=== PATIENT | female | born 1965 | race Caucasian/White ===

== ENCOUNTER 2022-09-21 12:03 | Emergency (ER) | payer MEDICAID, SELFPAY ==
[2022-09-21 12:04] VITALS: BP 148/73; PULSE 68; RESP 15; TEMP 36; O2SAT 98; BMI 21.1
--- NOTE | 2022-09-21 12:19 | VDLE_ITS ---
Reason For Study: Swelling RLE RIGHT LEFT GSV is normal. CFV is compressible, spontaneous, phasic, CFV is compressible, spontaneous, phasic, competent, and demonstrates normal competent and demonstrates normal augmentation. augmentation. FV is compressible, spontaneous, phasic, competent and demonstrates normal augmentation. POP V is compressible, spontaneous, phasic, competent and demonstrates normal augmentation. T/P Trunk is compressible. PTV is compressible. RT PerV is compressible. Procedure This is a venous duplex using B-mode, color flow and spectral Doppler. Exam performed portable in ED. A preliminary report was called and/or faxed to Dr. Irizarry. VL/Venous Duplex US, Unilateral Interpretation Summary Deep veins of the right lower extremity are patent and compressible segmentally . There is no evidence of right lower extremity deep vein thrombosis. The right great sapheno us vein appears patent and compressible segmentally. Ordering Physician: Shaye Irizarry Referring Physician: [facility] Performed By: Argelia Valle, KARRIE, RVT
--- NOTE | 2022-09-21 12:19 | EX.ED.DYSGE1 ---
HPI History of Present Illness Chief Complaint: Lower Extremity Injury Detail of Chief Complaint: Right foot swelling Informant: patient Onset/Context/Timing Onset: Days (5 days) Context: Gradual Onset Narrative Narrative: Patient presents with swelling to her right foot that she first noted 4 days ago. She states today before she had mowed the yard. She tried to elevate her legs and did not think much of it. Swelling has continued and now spread up to the level of her knee. She has some slight erythema noted on her foot but does not remember any injury. There are no open wounds. [facility] Medical History (Updated 09/21/22 @ 14:[address] Shaye Irizarry MD) Diabetes Hypertension Home Medications cephalexin 500 mg capsule 500 mg PO Q6 #40 CAPSULES 09/21/22 [Rx Last Taken Unknown] Social History Smoking Status: Current some day smoker tobacco type: cigarettes ROS ROS ED Constitutional Constitutional ED: Denies chills or fever(s) Eyes Eyes: Denies change in vision ENT ENT ED: Denies rhinorrhea or sore throat Cardiovascular Cardiovascular: Denies chest pain Respiratory/Chest Respiratory/Chest: Denies cough or dyspnea Gastrointestinal Gastrointestinal: Denies abdominal pain, nausea or vomiting Genitourinary Genitourinary ED: Denies dysuria Musculoskeletal Musculoskeletal: Reports extremity pain; Denies back pain Integumentary Denies Abrasions or rash Neurologic Neurologic: Denies headache(s) or weakness Psychiatric Psychiatric: Denies anxiety or depression Allergic/Immunologic Allergic/Immunologic ED: Denies lip swelling or urticaria EXAM Physical Exam Const Vital Signs: 09/21/22 12:04 Temperature 96.8 F L Temperature Source Temporal Pulse Rate 68 Respiratory Rate 15 Blood Pressure 148/73 H Blood Pressure Mean 98 Pulse Ox 98 Oxygen Delivery Method Room Air Positive well nourished and well developed General Appearance ED: well developed HEENT Reports moist mucous membranes Eyes EOMs intact bilaterally Chest Wall inspection of chest normal and palpation of chest normal Resp normal respiratory effort and clear to auscultation bilaterally Cardio regular rate and regular rhythm GI normal to inspection, nondistended, normoactive bowel sounds Extremity Extremity Narrative: Edema noted to the right lower extremity distal to the knee. There is slight erythema noted over the foot. No open wounds appreciated. Good range of motion of the joints without difficulty. Neuro oriented x3 and no sensory deficits noted Motor Exam: strength 5/5 throughout Psych mental status grossly normal Skin no wounds MDM MDM MDM Narrative Medical decision making narrative: Labwork obtained to evaluate for leukocytosis, anemia, and electrolyte derangement. Urinalysis obtained to evaluate for infection/hematuria. Venous ultrasound of the right lower extremity obtained to evaluate for DVT. Lab Data Attestation: I reviewed the patient's lab results. Labs: Laboratory Results - last 24 hr 09/21/22 09/21/22 12:25 13:36 WBC 5.2 RBC 3.47 L Hgb 12.1 Hct 35.7 L MCV 102.9 H MCH 34.9 H MCHC 33.9 RDW Std Deviation 50.8 H RDW Coeff of Kirsten 13.3 Plt Count 121 L MPV 12.4 H Immature Gran % (Auto) 0.400 Neut % (Auto) 64.5 Lymph % (Auto) 23.7 Rolette % (Auto) 7.9 Eos % (Auto) 3.1 Baso % (Auto) 0.4 Absolute Neuts (auto) 3.3 Absolute Lymphs (auto) 1.23 Nucleated RBC % 0 Sodium 137 Potassium 3.6 Chloride 106 Carbon Dioxide 24.0 Anion Gap 7 BUN 13 Creatinine 1.24 H Estim Creat Clear Calc 47.81 Est GFR (MDRD) Af Amer 57 L Est GFR (MDRD) Non-Af 47 L BUN/Creatinine Ratio 10.5 Glucose 200 H Calcium 9.0 Urine Color Yellow Urine Clarity Sl. Cloudy Urine pH 5.0 Ur Specific [place] 1.015 Urine Protein 15 H Urine Glucose (UA) Normal Urine Ketones Negative Urine Occult Blood 10 H Urine Nitrite Negative Urine Bilirubin Negative Urine Urobilinogen Normal Ur Leukocyte Esterase 500 H Urine RBC 0-5 SEEN Urine WBC 25-50 SEEN Ur Squamous Epith Cells 0-5 SEEN Urine Bacteria 1+ Urine Mucus 0 SEEN Urine Trichomonas 0-5 SEEN Treatment and Re-Evaluation :: CBC and chemistry studies largely unremarkable. Creatinine is 1.24. I do not have any prior values for comparison. Urinalysis shows mild infection with 1+ bacteria, 25-50 white cells, 500 leukocyte esterase. Nitrites are negative. Venous ultrasound of the right lower extremity reveals no evidence of DVT. Test results are discussed with the patient. Andrews wrap to the apply light compression is applied to the right lower extremity. Patient will be covered with Keflex which will cover both skin bacteria if she does have a mild cellulitis along with her urinary infection. Discharge Plan Triage Chief Complaint: Lower Extremity Injury ED Provider: Shaye Irizarry Dx/Rx/DC Orders Clinical Impression: UTI (urinary tract infection), Cellulitis Instructions: ED Cellulitis, ED Cystitis Female Adult Prescriptions: New cephalexin 500 mg capsule 500 mg PO Q6 Qty: 40 0RF Primary Care Provider: [facility] Robyn Cook Referrals: [facility],Robyn Landis [Primary Care Provider] - 1-2 Weeks Disposition Disposition: Home, Self Care
[2022-09-21 12:41] LABS: Absolute Lymphocyte Count 1.23 X10^3/uL (0.83-4.51); Absolute Neutrophil Count 3.3 X10^3/uL (2.0-7.7); Basophil# 0.02 X10^3/uL; Basophil% 0.4 % (0-1); Eosinophil# 0.16 X10^3/uL; Eosinophils% 3.1 % (0-5); Hematocrit 35.7 % (37-47); Hemoglobin 12.1 g/dL (12.0-15.0); Lymphocyte # 1.23 X10^3/ul (0.83-4.51); Lymphocyte % 23.7 % (19-41); Mean Corp Hgb Conc 33.9 g/dL (32-36); Mean Corpuscular Hgb 34.9 pg (27.0-32.0); Mean Corpuscular Volume 102.9 fL (81-99); Mean Platelet Vol. 12.4 fl (6.2-12.0); Monocyte# 0.41 X10^3/uL; Monocyte% 7.9 % (0-10); NRBC Flagged by Analyzer 0 % (0-5); Neutrophil # 3.34 X10^3/uL (2.7-7.7); Neutrophil % 64.5 % (47-70); Platelet Count 121 K/mm3 (150-450); RBC Distribution Width CV 13.3 % (11.6-14.6); RBC Distribution Width SD 50.8 fl (35.1-43.9); Red Blood Count 3.47 M/mm3 (4.2-5.4); White Blood Count 5.2 K/mm3 (4.4-11.0)
[2022-09-21 12:59] LABS: Anion Gap 7 (5-15); BUN 13 mg/dL (7-18); BUN/Creat Ratio 10.5 RATIO (10-20); Chloride 106 mmol/L (98-107); Creatinine, Serum 1.24 mg/dL (0.55-1.02); EST Glomerular Filtration Rate 47 mL/min (>60); Est Glom Filt Rate - Afr Amer 57 mL/min (>60); Estimated Creatinine Clearance 47.81 ml/min; Glucose 200 mg/dL (74-106); Potassium 3.6 mmol/L (3.5-5.1); Sodium Level 137 mmol/L (136-145)
[2022-09-21 13:41] LABS: Mucous, Urine 0 SEEN /hpf (<or=2+)
[2022-09-21 13:43] LABS: Color, Urine Yellow (Yellow); Glucose, Dipstick Normal (Normal); Ketone-Dipstick Negative (Negative); Leukocyte Esterase-Dipstick 500 /ul (Negative); Nitrite-Dipstick Negative (Negative); Occult Blood-Urine 10 /ul (Negative); Protein-Dipstick 15 mg/dl (Negative); Specific Gravity, Urine 1.015 (1.002-1.030); Urine Bilirubin Dipstick Negative (Negative); Urine Clarity Sl. Cloudy (Clear); Urine Urobilinogen Normal (Normal)
[2022-09-21 13:57] LABS: Bacteria 1+ /hpf (None Seen); Red Blood Cells-Urine 0-5 SEEN /hpf (0-5); Squamous Epithelial Cells - UA 0-5 SEEN /hpf (5-10); Trichomonas 0-5 SEEN /hpf (None Seen); White Blood Cells 25-50 SEEN /hpf (0-5)
[2022-09-21 14:38] VITALS: BP 133/71; PULSE 62; RESP 15; O2SAT 98
== END 2022-09-21 14:40 | disposition home or self-care (01) ==
PROVIDERS: Emergency Provider Emergency Medicine; Visit Provider Emergency Medicine
DX: L03.115 Cellulitis of right lower limb (principal); E11.9 Type 2 diabetes mellitus without complications; N39.0 Urinary tract infection, site not specified; I10 Essential (primary) hypertension; F17.210 Nicotine dependence, cigarettes, uncomplicated
CPT/HCPCS: 80048; 81001; 85025; 93971; 99284; A4216